=== PATIENT | male | born 1990 | race Asian ===

== ENCOUNTER 2023-09-03 16:03 | Emergency (ER) | payer MEDICAID ==
[~2023-09-03 16:03] MED LIST: ONDA8TAB13 PO
[2023-09-04] MEDS ORDERED: FERR325T28 PO (12:00)
[2023-09-04] MEDS ORDERED: ASCO-134 PO (12:08)
== END 2023-09-03 19:20 | disposition left against medical advice (07) ==
LOC: ER 16:04
DX: R83.8 Other abnormal findings in cerebrospinal fluid (principal); Z53.21 Procedure and treatment not carried out due to patient leaving prior to being seen by health care provider

== ENCOUNTER 2023-09-03 21:50 | Inpatient (IN) | payer MEDICAID ==
[~2023-09-03] VITALS: Ht 167.6 cm; Wt 94.5 kg
[2023-09-03 22:50] LABS: BASOPHILS # (AUTO) 0.1 X10'3 (0-0.2); BASOPHILS % (AUTO) 1.9 % (0-1); EOSINOPHILS % (AUTO) 12.3 % (0-6); LYMPHOCYTES # (AUTO) 1.3 X10'3 (1.1-4.8); LYMPHOCYTES % (AUTO) 15.9 % (21-51); MEAN CORPUSCULAR HEMOGLOBIN 19.1 PG (27.0-31.0); MEAN CORPUSCULAR HGB CONC 30.1 g/dL (33.0-36.5); MEAN CORPUSCULAR VOLUME 63.4 FL (78-98); MEAN PLATELET VOLUME 7.4 FL (7.4-10.4); MONOCYTES # (AUTO) 0.5 X10'3 (0-0.9); MONOCYTES % (AUTO) 6.2 % (2-12); NEUTROPHILS % (AUTO) 63.7 % (42-75); PLATELET COUNT 438 X10'3 (140-440); RED BLOOD COUNT 3.53 X10'6 (4.70-6.10); RED CELL DISTRIBUTION WIDTH 21.3 % (11.5-14.5); WHITE BLOOD COUNT 7.9 X10'3 (4.5-11.0)
[2023-09-03 22:55] LABS: PROTHROMBIN TIME 10.3 SECONDS (9.0-12.0)
[2023-09-03 22:59] LABS: ALBUMIN 3.1 G/DL (3.4-5.0); ALKALINE PHOSPHATASE 75 IU/L (46-116); ANION GAP 9 (8-16); BILIRUBIN,TOTAL 0.4 MG/DL (0.1-1.0); BLOOD UREA NITROGEN 9 MG/DL (7-18); BUN/CREATININE RATIO 8.3 (10.0-20.0); CALCIUM 7.6 MG/DL (8.5-10.1); CHLORIDE 106 MMOL/L (99-107); CREATININE 1.09 MG/DL (0.60-1.10); SODIUM 139 MMOL/L (135-145); eCRCL 84 ML/MIN; eGFR 78 ML/MIN
[2023-09-03 23:04] LABS: HEMATOCRIT 22.4 % (42.0-52.0); HEMOGLOBIN 6.7 g/dl (14.0-17.9)
[2023-09-03 23:43] LABS: ALANINE AMINOTRANSFERASE 18 U/L (12-78); ALBUMIN/GLOBULIN RATIO 0.7 (1.1-1.5); ASPARTATE AMINO TRANSFERASE 19 U/L (10-37); GLUCOSE 101 MG/DL (70-104); TOTAL PROTEIN 7.6 G/DL (6.4-8.2)
[2023-09-04] VITALS (13 sets, daily range): BP systolic 101–127; BP diastolic 53–76; PULSE 73–99; RESP 12–18; TEMP 97.8–99.7; O2SAT 98–100
[2023-09-04 00:11] LABS: NUCLEATED RED BLOOD CELLS 1 /100WBC (0-0); TOTAL CELLS COUNTED 100
[2023-09-04 00:12] LABS: ANISOCYTOSIS 3+; LARGE PLATELETS FEW; PLATELET ESTIMATE NORMAL
[2023-09-04 00:13] LABS: HYPOCHROMASIA 1+; MICROCYTOSIS 2+; POLYCHROMASIA FEW; SMUDGE CELLS 1+; TARGET CELLS FEW; TEAR DROP CELLS FEW
[2023-09-04] MEDS ORDERED: magnesium 2GM in 50ml NS 50 ML IV PRN (00:20)
[2023-09-04] MEDS ORDERED: ondansetron/PF 4mg/2ml inj IV PRN (00:20)
[2023-09-04] MEDS ORDERED: magnesium Cl slow-release 64mg tablet PO PRN (00:20)
[2023-09-04] MEDS ORDERED: potassium Cl 40MEQ/1/2NS 520ml 520 ML IV PRN (00:20)
[2023-09-04] MEDS ORDERED: potassium Cl 20 mEq SR tablet PO PRN ×2 (00:20)
[2023-09-04] MEDS ORDERED: magnesium 4gm in 100ml NS 100 ML IV PRN (00:20)
[2023-09-04] MEDS ORDERED: acetaminophen 325mg tablet PO PRN (00:20)
[2023-09-04] MEDS ORDERED: mag hydrox/Alum hydrox/simeth 30ml oral suspension PO PRN (00:20)
[2023-09-04] MEDS ORDERED: magnesium hydroxide 30ml (MOM) UD suspension PO PRN (00:20)
[2023-09-04] MEDS: normal saline 1000ml 1,000 ML IV SCH (03:30)
[2023-09-04 04:33] LABS: BASOPHILS # (AUTO) 0.1 X10'3 (0-0.2); BASOPHILS % (AUTO) 1.6 % (0-1); EOSINOPHILS % (AUTO) 11.2 % (0-6); LYMPHOCYTES # (AUTO) 1.5 X10'3 (1.1-4.8); LYMPHOCYTES % (AUTO) 16.8 % (21-51); MEAN CORPUSCULAR HEMOGLOBIN 19.1 PG (27.0-31.0); MEAN CORPUSCULAR HGB CONC 29.3 g/dL (33.0-36.5); MEAN CORPUSCULAR VOLUME 65.1 FL (78-98); MEAN PLATELET VOLUME 8.2 FL (7.4-10.4); MONOCYTES # (AUTO) 0.6 X10'3 (0-0.9); MONOCYTES % (AUTO) 6.5 % (2-12); NEUTROPHILS # (AUTO) 5.6 X10'3 (1.8-7.7); NEUTROPHILS % (AUTO) 63.9 % (42-75); PLATELET COUNT 373 X10'3 (140-440); RED CELL DISTRIBUTION WIDTH 24.6 % (11.5-14.5); WHITE BLOOD COUNT 8.8 X10'3 (4.5-11.0)
[2023-09-04 04:44] LABS: HEMATOCRIT 23.4 % (42.0-52.0); HEMOGLOBIN 6.9 g/dl (14.0-17.9)
[2023-09-04 05:28] LABS: MAGNESIUM 2.1 MG/DL (1.5-2.4); POTASSIUM 3.7 MMOL/L (3.5-5.1)
[2023-09-04] MEDS: K and/or MAG REPLACEMENT MC SCH (08:00)
[2023-09-04] MEDS: docusate sod 100mg capsule PO SCH (08:00)
[2023-09-04] MEDS: pantoprazole 40 MG vial IV SCH (08:36)
[2023-09-04 08:57] LABS: BILIRUBIN,URINE NEGATIVE (Neg); CLARITY,URINE CLEAR (Clear); COLOR,URINE YELLOW (Yellow); GLUCOSE, URINE NEGATIVE (Neg); KETONES,URINE TRACE mg/dl (Neg); LEUKOCYTE ESTERASE ,URINE NEGATIVE (Neg); NITRITES, URINE NEGATIVE (Neg); OCCULT BLOOD,URINE NEGATIVE (Neg); PROTEIN,URINE NEGATIVE (Neg); UROBILINOGEN,URINE 0.2 E.U/dL (0.2-1.0)
[2023-09-04 09:06] LABS: UA COLLECTION TYPE NON-SPECIFIED
[2023-09-04 10:41] LABS: HEMATOCRIT 26.4 % (42.0-52.0); HEMOGLOBIN 7.8 g/dl (14.0-17.9); MEAN CORPUSCULAR HGB CONC 29.5 g/dL (33.0-36.5); MEAN CORPUSCULAR VOLUME 67.9 FL (78-98); MEAN PLATELET VOLUME 7.1 FL (7.4-10.4); PLATELET COUNT 352 X10'3 (140-440); RED BLOOD COUNT 3.89 X10'6 (4.70-6.10); RED CELL DISTRIBUTION WIDTH 26.5 % (11.5-14.5); WHITE BLOOD COUNT 8.8 X10'3 (4.5-11.0)
[2023-09-04] MEDS ORDERED: FERR325T28 PO (12:00)
[2023-09-04] MEDS ORDERED: ASCO-134 PO (12:08)
== END 2023-09-04 15:36 | disposition home or self-care (01) | DRG 663 ==
LOC: ER 21:51 → ED HOLD 09-04 00:21 → SUR 3N 09-04 02:45
PROVIDERS: ADMIT Student in an Organized Health Care Education/Training Program; ATTEND Family Medicine
PROC: 30233N1 Transfusion of Nonautologous Red Blood Cells into Peripheral Vein, Percutaneous Approach (ICD-10-PCS; principal; 2023-09-04)
DX: D50.9 Iron deficiency anemia, unspecified (principal); E83.51 Hypocalcemia; K51.90 Ulcerative colitis, unspecified, without complications; E88.09 Other disorders of plasma-protein metabolism, not elsewhere classified; Z79.899 Other long term (current) drug therapy; Z91.013 Allergy to seafood
CPT/HCPCS: 36415; 36430; 80053; 81003; 82728; 83540; 83735; 84132; 84145; 84466; 85007; 85025; 85027; 85610; 86885; 86900; 86901; 86920; 87045; 87046; 87081; 89055; 93005; 99285; C9113; G0378; J7030; J7040; J7050; P9016

== ENCOUNTER 2024-03-29 19:40 | Emergency (ER) | payer MEDICAID ==
[~2024-03-29] VITALS: Ht 165.1 cm; Wt 93.2 kg
[~2024-03-29 19:40] MED LIST changes: +ASCO-134 PO; +LIDO700A32 TOP; +ONDA-245 PO; -ONDA8TAB13 PO
[2024-03-29 23:35] LABS: BILIRUBIN,URINE NEGATIVE (Neg); CLARITY,URINE CLEAR (Clear); COLOR,URINE YELLOW (Yellow); GLUCOSE, URINE NEGATIVE (Neg); KETONES,URINE NEGATIVE (Neg); LEUKOCYTE ESTERASE ,URINE NEGATIVE (Neg); NITRITES, URINE NEGATIVE (Neg); OCCULT BLOOD,URINE NEGATIVE (Neg); PH,URINE 6.5 (4.8-8.0); PROTEIN,URINE NEGATIVE (Neg); UROBILINOGEN,URINE 0.2 E.U/dL (0.2-1.0)
[2024-03-29 23:48] LABS: EOSINOPHILS # (AUTO) 0.6 X10'3 (0-0.9)
[2024-03-29 23:56] LABS: ALBUMIN 3.5 G/DL (3.4-5.0); ANION GAP 8 (8-16); BLOOD UREA NITROGEN 13 MG/DL (7-18); BUN/CREATININE RATIO 12.9 (10.0-20.0); CALCIUM 8.9 MG/DL (8.5-10.1); CHLORIDE 99 MMOL/L (99-107); CREATININE 1.01 MG/DL (0.60-1.10); GLUCOSE 95 MG/DL (70-104); SODIUM 134 MMOL/L (135-145); eCRCL 90 ML/MIN; eGFR 85 ML/MIN
[2024-03-30] LABS: UA COLLECTION TYPE CLN CATCH MIDSTREAM
[2024-03-30 00:01] LABS: BASOPHILS # (AUTO) 0.1 X10'3 (0-0.2); BASOPHILS % (AUTO) 1.1 % (0-1); EOSINOPHILS % (AUTO) 4.9 % (0-6); LYMPHOCYTES # (AUTO) 1.4 X10'3 (1.1-4.8); MEAN PLATELET VOLUME 8.2 FL (7.4-10.4); MONOCYTES # (AUTO) 0.6 X10'3 (0-0.9); NEUTROPHILS # (AUTO) 8.8 X10'3 (1.8-7.7); PLATELET COUNT 527 X10'3 (140-440); WHITE BLOOD COUNT 11.5 X10'3 (4.5-11.0)
[2024-03-30] MEDS: HYDROcodone/acetaminophen 5mg/325mg tablet PO ONE (00:03)
[2024-03-30] MEDS: ondansetron 4mg rapidly disintigrating tab PO ONE (00:03)
[2024-03-30] MEDS: ibuprofen tablet 400 MG TABLET PO ONE (00:04)
[2024-03-30] MEDS ORDERED: APIX5TAB3 PO (00:46)
[2024-03-30 00:59] LABS: HEMATOCRIT 22.5 % (42.0-52.0)
[2024-03-30 01:00] LABS: MEAN CORPUSCULAR HEMOGLOBIN 17.2 PG (27.0-31.0); MEAN CORPUSCULAR HGB CONC 31.3 g/dL (33.0-36.5); MEAN CORPUSCULAR VOLUME 54.9 FL (78-98); RED CELL DISTRIBUTION WIDTH 20.3 % (11.5-14.5)
[2024-03-30] MEDS: apixaban 5mg tablet PO ONE (01:19)
[2024-03-30 03:05] VITALS: BP 119/72; PULSE 82; RESP 14; TEMP 98.3; O2SAT 99
[2024-03-30 04:24] LABS: PLATELET ESTIMATE INCREASED
[2024-03-30 04:25] LABS: ANISOCYTOSIS 3+; ELLIPTOCYTES FEW; HYPOCHROMASIA 1+; MICROCYTOSIS 3+; POLYCHROMASIA FEW; ROULEAUX 1+
== END 2024-03-30 03:05 | disposition home or self-care (01) ==
LOC: ER 19:41
DX: I82.4Z1 Acute embolism and thrombosis of unspecified deep veins of right distal lower extremity (principal); G89.29 Other chronic pain; Z91.013 Allergy to seafood; Z79.899 Other long term (current) drug therapy; Z87.442 Personal history of urinary calculi
CPT/HCPCS: 36415; 71045; 80048; 81003; 83605; 84145; 85008; 85025; 87040; 93971; 99284

== ENCOUNTER 2024-04-01 22:13 | Emergency (ER) | payer MEDICAID ==
[~2024-04-01] VITALS: Ht 165.1 cm; Wt 93.2 kg
[~2024-04-01 22:13] MED LIST changes: +APIX5TAB3 PO
[2024-04-01 22:50] LABS: BASOPHILS # (AUTO) 0.1 X10'3 (0-0.2); BASOPHILS % (AUTO) 1.5 % (0-1); EOSINOPHILS # (AUTO) 0.3 X10'3 (0-0.9); LYMPHOCYTES # (AUTO) 0.9 X10'3 (1.1-4.8); LYMPHOCYTES % (AUTO) 10.1 % (21-51); MEAN CORPUSCULAR HEMOGLOBIN 16.6 PG (27.0-31.0); MEAN CORPUSCULAR HGB CONC 29.2 g/dL (33.0-36.5); MONOCYTES # (AUTO) 0.5 X10'3 (0-0.9); MONOCYTES % (AUTO) 5.5 % (2-12); NEUTROPHILS # (AUTO) 7.3 X10'3 (1.8-7.7); NEUTROPHILS % (AUTO) 79.9 % (42-75); PLATELET COUNT 524 X10'3 (140-440); RED BLOOD COUNT 4.21 X10'6 (4.70-6.10); RED CELL DISTRIBUTION WIDTH 20.6 % (11.5-14.5); WHITE BLOOD COUNT 9.1 X10'3 (4.5-11.0)
[2024-04-01 22:59] LABS: APTT 27 SECONDS (22-32); INR 1.1 INR; PROTHROMBIN TIME 11.8 SECONDS (9.0-12.0)
[2024-04-01 23:01] LABS: ALANINE AMINOTRANSFERASE 15 U/L (12-78); ALBUMIN 3.1 G/DL (3.4-5.0); ALBUMIN/GLOBULIN RATIO 0.7 (1.1-1.5); ALKALINE PHOSPHATASE 62 IU/L (46-116); ANION GAP 9 (8-16); ASPARTATE AMINO TRANSFERASE 13 U/L (10-37); BILIRUBIN,TOTAL 0.5 MG/DL (0.1-1.0); BLOOD UREA NITROGEN 10 MG/DL (7-18); BUN/CREATININE RATIO 11.8 (10.0-20.0); CALCIUM 8.7 MG/DL (8.5-10.1); CHLORIDE 99 MMOL/L (99-107); CREATININE 0.85 MG/DL (0.60-1.10); GLUCOSE 101 MG/DL (70-104); POTASSIUM 4.1 MMOL/L (3.5-5.1); SODIUM 133 MMOL/L (135-145); TOTAL CARBON DIOXIDE 25.1 MMOL/L (24-32); TOTAL PROTEIN 7.8 G/DL (6.4-8.2); eCRCL 107 ML/MIN; eGFR > 90 ML/MIN
[2024-04-01] MEDS ORDERED: ondansetron 4mg rapidly disintigrating tab PO ONE (23:35)
[2024-04-01] MEDS ORDERED: HYDROcodone/acetaminophen 5mg/325mg tablet PO ONE (23:35)
[2024-04-01] MEDS ORDERED: HYDR-3965 PO (23:36)
[2024-04-02 00:05] VITALS: BP 120/80; PULSE 96; RESP 16; TEMP 97.9; O2SAT 98
[2024-04-02] MEDS: HYDROcodone/acetaminophen 5mg/325mg tablet PO ONE (00:14)
[2024-04-02] MEDS: ondansetron 4mg rapidly disintigrating tab PO ONE (00:21)
[2024-04-02] MEDS: acetaminophen 325mg tablet PO ONE (00:21)
[2024-04-02 01:59] LABS: ANISOCYTOSIS 3+; MICROCYTOSIS 3+; PLATELET ESTIMATE INCREASED
[2024-04-02 02:01] LABS: ELLIPTOCYTES FEW; HYPOCHROMASIA 1+; LARGE PLATELETS FEW
== END 2024-04-02 00:21 | disposition home or self-care (01) ==
LOC: ER 22:15
DX: R53.81 Other malaise (principal); I82.403 Acute embolism and thrombosis of unspecified deep veins of lower extremity, bilateral; D64.9 Anemia, unspecified; K51.911 Ulcerative colitis, unspecified with rectal bleeding; Z83.79 Family history of other diseases of the digestive system; Z88.5 Allergy status to narcotic agent; Z83.3 Family history of diabetes mellitus; Z79.01 Long term (current) use of anticoagulants; Z82.49 Family history of ischemic heart disease and other diseases of the circulatory system; Z86.718 Personal history of other venous thrombosis and embolism; Z87.440 Personal history of urinary (tract) infections
CPT/HCPCS: 36415; 80053; 84484; 85008; 85025; 85610; 85730; 86885; 86900; 86901; 93005; 99284

== ENCOUNTER 2024-04-16 11:43 | Emergency (ER) | payer MEDICAID ==
[~2024-04-16] VITALS: Ht 165.1 cm; Wt 90.0 kg
[~2024-04-16 11:43] MED LIST changes: +HYDR-3965 PO
[2024-04-16 11:53] VITALS: BP 139/95; PULSE 111; RESP 20; O2SAT 100
[2024-04-16 13:18] LABS: APTT 28 SECONDS (22-32); INR 1.1 INR; PROTHROMBIN TIME 11.8 SECONDS (9.0-12.0)
[2024-04-16 13:22] LABS: ALANINE AMINOTRANSFERASE 30 U/L (12-78); ALBUMIN/GLOBULIN RATIO 0.5 (1.1-1.5); ALKALINE PHOSPHATASE 60 IU/L (46-116); ANION GAP 8 (8-16); ASPARTATE AMINO TRANSFERASE 19 U/L (10-37); BILIRUBIN,TOTAL 0.4 MG/DL (0.1-1.0); BLOOD UREA NITROGEN 7 MG/DL (7-18); BUN/CREATININE RATIO 7.8 (10.0-20.0); CALCIUM 8.8 MG/DL (8.5-10.1); CHLORIDE 98 MMOL/L (99-107); GLUCOSE 97 MG/DL (70-104); LIPASE 39 U/L (16-77); POTASSIUM 3.4 MMOL/L (3.5-5.1); SODIUM 133 MMOL/L (135-145); TOTAL CARBON DIOXIDE 26.7 MMOL/L (24-32); TOTAL PROTEIN 8.6 G/DL (6.4-8.2); eCRCL 101 ML/MIN; eGFR > 90 ML/MIN
[2024-04-16 13:31] LABS: BASOPHILS # (AUTO) 0.1 X10'3 (0-0.2); BASOPHILS % (AUTO) 1.3 % (0-1); EOSINOPHILS # (AUTO) 0.3 X10'3 (0-0.9); EOSINOPHILS % (AUTO) 2.6 % (0-6); HEMATOCRIT 22.4 % (42.0-52.0); LYMPHOCYTES # (AUTO) 1.3 X10'3 (1.1-4.8); LYMPHOCYTES % (AUTO) 12.6 % (21-51); MEAN CORPUSCULAR HEMOGLOBIN 16.6 PG (27.0-31.0); MEAN CORPUSCULAR HGB CONC 28.9 g/dL (33.0-36.5); MEAN CORPUSCULAR VOLUME 57.6 FL (78-98); MEAN PLATELET VOLUME 8.1 FL (7.4-10.4); MONOCYTES # (AUTO) 0.4 X10'3 (0-0.9); MONOCYTES % (AUTO) 4.3 % (2-12); NEUTROPHILS # (AUTO) 7.9 X10'3 (1.8-7.7); NEUTROPHILS % (AUTO) 79.2 % (42-75); PLATELET COUNT 639 X10'3 (140-440); RED BLOOD COUNT 3.88 X10'6 (4.70-6.10); WHITE BLOOD COUNT 9.9 X10'3 (4.5-11.0)
[2024-04-16 13:37] LABS: HEMOGLOBIN 6.5 g/dl (14.0-17.9)
[2024-04-16 14:54] LABS: ANISOCYTOSIS 3+; ELLIPTOCYTES 1+; HYPOCHROMASIA 2+; MICROCYTOSIS 3+; PLATELET ESTIMATE INCREASED
[2024-04-16 14:55] LABS: SCHISTOCYTES 1+; STOMATOCYTES 2+; TARGET CELLS FEW; TEAR DROP CELLS FEW
== END 2024-04-16 15:06 | disposition left against medical advice (07) ==
LOC: ER 11:44
DX: R53.1 Weakness (principal); Z53.21 Procedure and treatment not carried out due to patient leaving prior to being seen by health care provider; K51.90 Ulcerative colitis, unspecified, without complications
CPT/HCPCS: 36415; 80053; 83690; 85008; 85025; 85610; 85730

== ENCOUNTER 2024-04-16 18:08 | Inpatient (IN) | payer MEDICAID ==
[~2024-04-16] VITALS: Ht 165.1 cm; Wt 88.6 kg
[2024-04-16 19:00] LABS: BASOPHILS # (AUTO) 0.1 X10'3 (0-0.2); BASOPHILS % (AUTO) 1.4 % (0-1); EOSINOPHILS # (AUTO) 0.3 X10'3 (0-0.9); EOSINOPHILS % (AUTO) 2.7 % (0-6); LYMPHOCYTES % (AUTO) 10.3 % (21-51); MEAN PLATELET VOLUME 7.9 FL (7.4-10.4); MONOCYTES # (AUTO) 0.5 X10'3 (0-0.9); NEUTROPHILS # (AUTO) 7.8 X10'3 (1.8-7.7); NEUTROPHILS % (AUTO) 80.6 % (42-75); PLATELET COUNT 544 X10'3 (140-440); WHITE BLOOD COUNT 9.6 X10'3 (4.5-11.0)
[2024-04-16 19:14] LABS: INR 1.1 INR; PROTHROMBIN TIME 11.7 SECONDS (9.0-12.0)
[2024-04-16 19:18] LABS: ALANINE AMINOTRANSFERASE 31 U/L (12-78); ALBUMIN 2.7 G/DL (3.4-5.0); ALBUMIN/GLOBULIN RATIO 0.6 (1.1-1.5); ALKALINE PHOSPHATASE 56 IU/L (46-116); ANION GAP 7 (8-16); ASPARTATE AMINO TRANSFERASE 15 U/L (10-37); BILIRUBIN,TOTAL 0.3 MG/DL (0.1-1.0); BLOOD UREA NITROGEN 12 MG/DL (7-18); BUN/CREATININE RATIO 11.4 (10.0-20.0); CALCIUM 8.8 MG/DL (8.5-10.1); CHLORIDE 102 MMOL/L (99-107); CREATININE 1.05 MG/DL (0.60-1.10); GLUCOSE 108 MG/DL (70-104); POTASSIUM 4.6 MMOL/L (3.5-5.1); SODIUM 136 MMOL/L (135-145); TOTAL CARBON DIOXIDE 27.4 MMOL/L (24-32); TOTAL PROTEIN 7.3 G/DL (6.4-8.2); eCRCL 86 ML/MIN; eGFR 81 ML/MIN
[2024-04-16 19:29] LABS: RED BLOOD COUNT 3.34 X10'6 (4.70-6.10)
[2024-04-16 19:30] LABS: HEMATOCRIT 18.9 % (42.0-52.0); HEMOGLOBIN 5.9 g/dl (14.0-17.9); MEAN CORPUSCULAR HEMOGLOBIN 17.6 PG (27.0-31.0); MEAN CORPUSCULAR VOLUME 56.6 FL (78-98)
[2024-04-16 19:31] LABS: MEAN CORPUSCULAR HGB CONC 31.1 g/dL (33.0-36.5); RED CELL DISTRIBUTION WIDTH 21.3 % (11.5-14.5)
[2024-04-16 19:49] LABS: ANISOCYTOSIS 3+; HYPOCHROMASIA 1+; PLATELET ESTIMATE INCREASED; POLYCHROMASIA FEW
[2024-04-16 19:50] LABS: ELLIPTOCYTES 1+; MICROCYTOSIS 3+; STOMATOCYTES 1+
[2024-04-16 19:51] LABS: LARGE PLATELETS FEW
[2024-04-16 19:52] LABS: SCHISTOCYTES FEW
[2024-04-16] MEDS ORDERED: potassium Cl 20 mEq SR tablet PO PRN (20:05)
[2024-04-16] MEDS ORDERED: magnesium sulf-water 4G/100mL 100 ML IV PRN (20:05)
[2024-04-16] MEDS ORDERED: magnesium hydroxide 30ml (MOM) UD suspension PO PRN (20:05)
[2024-04-16] MEDS ORDERED: magnesium Cl slow-release 64mg tablet PO PRN (20:05)
[2024-04-16] MEDS ORDERED: magnesium sulf-water 2g/50mL 50 ML IV PRN (20:05)
[2024-04-16] MEDS ORDERED: ondansetron/PF 4mg/2ml inj IV PRN (20:05)
[2024-04-16] MEDS ORDERED: mag hydrox/Alum hydrox/simeth 30ml oral suspension PO PRN (20:05)
[2024-04-16] MEDS ORDERED: potassium Cl 40MEQ/1/2NS 520ml 520 ML IV PRN (20:05)
[2024-04-16] MEDS ORDERED: HYDROcodone/acetaminophen 5mg/325mg tablet PO PRN (21:10)
[2024-04-16 21:15] VITALS: BP 104/58; PULSE 87; RESP 20; TEMP 99.1
[2024-04-16 21:30] VITALS: BP_SYST 111; BP_SYST 119; BP_DIAS 69; BP_DIAS 75; PULSE 86; PULSE 87; RESP 20; TEMP 99; TEMP 99.1
[2024-04-16 21:45] VITALS: BP 111/75; PULSE 86; RESP 20; TEMP 99.1
[2024-04-16 22:00] VITALS: BP 133/80; PULSE 86; RESP 20; TEMP 86
[2024-04-16 22:15] VITALS: BP 121/70; PULSE 86; RESP 20; TEMP 98.4
[2024-04-16] MEDS: pantoprazole 40 MG vial IV SCH (22:31)
[2024-04-16 23:15] VITALS: BP 124/78; PULSE 85; RESP 20; TEMP 99
[2024-04-17] VITALS (9 sets, daily range): BP systolic 95–130; BP diastolic 54–89; PULSE 73–89; RESP 16–19; TEMP 97.4–98.5; O2SAT 98–99
[2024-04-17] MEDS: normal saline 1000ml 1,000 ML IV SCH (01:16)
[2024-04-17 01:24] LABS: % IRON SATURATION 9 % (11-46); IRON 20 UG/DL (53-167); TOTAL IRON BINDING CAPACITY 226 UG/DL (259-388)
[2024-04-17] MEDS: HYDROcodone/acetaminophen 10/325mg tab PO PRN (04:20)
[2024-04-17 06:54] LABS: BASOPHILS # (AUTO) 0.1 X10'3 (0-0.2); BASOPHILS % (AUTO) 1.6 % (0-1); EOSINOPHILS # (AUTO) 0.4 X10'3 (0-0.9); EOSINOPHILS % (AUTO) 3.9 % (0-6); LYMPHOCYTES # (AUTO) 1.3 X10'3 (1.1-4.8); LYMPHOCYTES % (AUTO) 14.5 % (21-51); MEAN CORPUSCULAR HEMOGLOBIN 18.7 PG (27.0-31.0); MEAN CORPUSCULAR VOLUME 62.2 FL (78-98); MEAN PLATELET VOLUME 7.9 FL (7.4-10.4); MONOCYTES # (AUTO) 0.5 X10'3 (0-0.9); MONOCYTES % (AUTO) 5.8 % (2-12); NEUTROPHILS # (AUTO) 6.7 X10'3 (1.8-7.7); NEUTROPHILS % (AUTO) 74.2 % (42-75); PLATELET COUNT 483 X10'3 (140-440); RED BLOOD COUNT 3.33 X10'6 (4.70-6.10); RED CELL DISTRIBUTION WIDTH 26.2 % (11.5-14.5)
[2024-04-17 06:57] LABS: ALBUMIN 2.6 G/DL (3.4-5.0); ANION GAP 7 (8-16); BLOOD UREA NITROGEN 8 MG/DL (7-18); BUN/CREATININE RATIO 9.6 (10.0-20.0); CALCIUM 8.5 MG/DL (8.5-10.1); CHLORIDE 103 MMOL/L (99-107); CREATININE 0.83 MG/DL (0.60-1.10); GLUCOSE 88 MG/DL (70-104); POTASSIUM 3.6 MMOL/L (3.5-5.1); SODIUM 137 MMOL/L (135-145); TOTAL CARBON DIOXIDE 27.5 MMOL/L (24-32); eCRCL 109 ML/MIN; eGFR > 90 ML/MIN
[2024-04-17 07:10] LABS: HEMOGLOBIN 6.2 g/dl (14.0-17.9)
[2024-04-17 07:11] LABS: HEMATOCRIT 20.7 % (42.0-52.0)
[2024-04-17 07:43] LABS: ANISOCYTOSIS 3+; ELLIPTOCYTES FEW; HYPOCHROMASIA 1+; MICROCYTOSIS 2+; PLATELET ESTIMATE INCREASED; POIKILOCYTOSIS FEW
[2024-04-17] MEDS: K and/or MAG REPLACEMENT MC SCH (08:00)
[2024-04-17] MEDS: docusate sod 100mg capsule PO SCH (09:10)
[2024-04-17 13:13] LABS: OCCULT BLOOD STOOL POSITIVE (Neg)
[2024-04-17] MEDS: albumin (human) 25% 100 ML IV solution IV ONE (17:08)
[2024-04-17] MEDS: acetaminophen 325mg tablet PO PRN (17:20)
[2024-04-17 17:33] LABS: BASOPHILS # (AUTO) 0.1 X10'3 (0-0.2); EOSINOPHILS # (AUTO) 0.3 X10'3 (0-0.9); EOSINOPHILS % (AUTO) 3.4 % (0-6); HEMATOCRIT 24.2 % (42.0-52.0); HEMOGLOBIN 7.3 g/dl (14.0-17.9); LYMPHOCYTES % (AUTO) 9.8 % (21-51); MEAN CORPUSCULAR HEMOGLOBIN 19.5 PG (27.0-31.0); MEAN CORPUSCULAR HGB CONC 30.3 g/dL (33.0-36.5); MEAN CORPUSCULAR VOLUME 64.3 FL (78-98); MONOCYTES # (AUTO) 0.4 X10'3 (0-0.9); MONOCYTES % (AUTO) 3.8 % (2-12); PLATELET COUNT 470 X10'3 (140-440); RED BLOOD COUNT 3.77 X10'6 (4.70-6.10); WHITE BLOOD COUNT 9.8 X10'3 (4.5-11.0)
[2024-04-17 18:09] LABS: HEMATOCRIT 23.3 % (42.0-52.0); HEMOGLOBIN 7.1 g/dl (14.0-17.9); MEAN CORPUSCULAR HEMOGLOBIN 19.6 PG (27.0-31.0); MEAN CORPUSCULAR HGB CONC 30.6 g/dL (33.0-36.5); MEAN CORPUSCULAR VOLUME 64.2 FL (78-98); MEAN PLATELET VOLUME 6.2 FL (7.4-10.4); PLATELET COUNT 461 X10'3 (140-440); RED BLOOD COUNT 3.63 X10'6 (4.70-6.10); RED CELL DISTRIBUTION WIDTH 29.6 % (11.5-14.5); WHITE BLOOD COUNT 8.9 X10'3 (4.5-11.0)
[2024-04-17] MEDS: pantoprazole 40MG/NS 100ML BAG 100 ML IV SCH (21:17)
[2024-04-18] MEDS: hydrocortisone sod succ/PF 100mg/2ml inj. IV SCH (00:03)
[2024-04-18 06:00] VITALS: BP 115/70; PULSE 62; RESP 16; TEMP 97.4; O2SAT 97
[2024-04-18 06:45] LABS: ANION GAP 12 (8-16); BLOOD UREA NITROGEN 10 MG/DL (7-18); BUN/CREATININE RATIO 12.3 (10.0-20.0); CALCIUM 8.8 MG/DL (8.5-10.1); CHLORIDE 100 MMOL/L (99-107); CREATININE 0.81 MG/DL (0.60-1.10); GLUCOSE 97 MG/DL (70-104); POTASSIUM 3.8 MMOL/L (3.5-5.1); SODIUM 136 MMOL/L (135-145); TOTAL CARBON DIOXIDE 24.3 MMOL/L (24-32); eCRCL 112 ML/MIN; eGFR > 90 ML/MIN
[2024-04-18 06:48] LABS: BASOPHILS # (AUTO) 0.1 X10'3 (0-0.2); BASOPHILS % (AUTO) 0.7 % (0-1); EOSINOPHILS # (AUTO) 0.1 X10'3 (0-0.9); EOSINOPHILS % (AUTO) 0.6 % (0-6); HEMATOCRIT 25.6 % (42.0-52.0); HEMOGLOBIN 7.9 g/dl (14.0-17.9); LYMPHOCYTES # (AUTO) 0.7 X10'3 (1.1-4.8); LYMPHOCYTES % (AUTO) 6.3 % (21-51); MEAN CORPUSCULAR HEMOGLOBIN 19.9 PG (27.0-31.0); MEAN CORPUSCULAR HGB CONC 30.9 g/dL (33.0-36.5); MEAN CORPUSCULAR VOLUME 64.4 FL (78-98); MONOCYTES # (AUTO) 0.1 X10'3 (0-0.9); MONOCYTES % (AUTO) 1.3 % (2-12); NEUTROPHILS # (AUTO) 9.5 X10'3 (1.8-7.7); NEUTROPHILS % (AUTO) 91.1 % (42-75); PLATELET COUNT 525 X10'3 (140-440); RED BLOOD COUNT 3.97 X10'6 (4.70-6.10); RED CELL DISTRIBUTION WIDTH 29.9 % (11.5-14.5); WHITE BLOOD COUNT 10.4 X10'3 (4.5-11.0)
[2024-04-18 08:21] LABS: C DIFF ANTIGEN SEE COMMENTS (NEGATIVE); C DIFF SPECIMEN=DIARRHEA? ACCEPTABLE; C DIFFICILE TOXINS A&B NEGATIVE (Neg)
[2024-04-18 09:00] VITALS: RESP 18; O2SAT 96
[2024-04-18 09:48] VITALS: RESP 16
[2024-04-18 10:35] VITALS: BP 97/44; PULSE 80; RESP 16; TEMP 98.4; O2SAT 98
[2024-04-18] MEDS ORDERED: NORMAL SALINE IV SCH (12:05)
[2024-04-18] MEDS ORDERED: IRON SUCROSE COMPLEX IV SCH (12:05)
[2024-04-18] MEDS: PEG 3350/Na sulf,bicarb,Cl/KCl oral sol 4 liter bottle PO ONE (14:06)
[2024-04-18] MEDS: IRON SUCROSE COMPLEX IV SCH (14:46)
[2024-04-18] MEDS: NS IV SCH (14:46)
[2024-04-18 18:00] VITALS: BP 116/69; PULSE 72; RESP 16; TEMP 98.4; O2SAT 98
[2024-04-18 22:00] VITALS: BP 126/65; PULSE 85; RESP 16; TEMP 98.2; O2SAT 99
[2024-04-19] VITALS (8 sets, daily range): BP systolic 94–106; BP diastolic 47–67; PULSE 56–73; RESP 14–18; TEMP 97.7–97.8; O2SAT 98–99
[2024-04-19 07:38] LABS: ALBUMIN 2.5 G/DL (3.4-5.0); ANION GAP 9 (8-16); BLOOD UREA NITROGEN 5 MG/DL (7-18); BUN/CREATININE RATIO 6.4 (10.0-20.0); CALCIUM 8.2 MG/DL (8.5-10.1); CHLORIDE 109 MMOL/L (99-107); CREATININE 0.78 MG/DL (0.60-1.10); GLUCOSE 122 MG/DL (70-104); POTASSIUM 3.4 MMOL/L (3.5-5.1); SODIUM 143 MMOL/L (135-145); TOTAL CARBON DIOXIDE 25.3 MMOL/L (24-32); eCRCL 116 ML/MIN; eGFR > 90 ML/MIN
[2024-04-19 07:41] LABS: BASOPHILS % (AUTO) 0.6 % (0-1); EOSINOPHILS % (AUTO) 0 % (0-6); HEMOGLOBIN 7.1 g/dl (14.0-17.9); LYMPHOCYTES # (AUTO) 0.7 X10'3 (1.1-4.8); LYMPHOCYTES % (AUTO) 12.3 % (21-51); MONOCYTES # (AUTO) 0.2 X10'3 (0-0.9); MONOCYTES % (AUTO) 3.4 % (2-12); NEUTROPHILS # (AUTO) 4.9 X10'3 (1.8-7.7); NEUTROPHILS % (AUTO) 83.7 % (42-75); PLATELET COUNT 449 X10'3 (140-440); RED BLOOD COUNT 3.74 X10'6 (4.70-6.10); WHITE BLOOD COUNT 5.8 X10'3 (4.5-11.0)
[2024-04-19 08:12] LABS: HEMATOCRIT 22.9 % (42.0-52.0); MEAN CORPUSCULAR HEMOGLOBIN 20.4 PG (27.0-31.0); MEAN CORPUSCULAR VOLUME 63.7 FL (78-98)
[2024-04-19] MEDS ORDERED: MIDAZolam 1 MG/ML 5ML VIAL ONE (10:41)
[2024-04-19] MEDS ORDERED: fentaNYL/PF 50MCG/1 ML 2ML syringe ONE (10:41)
[2024-04-19 11:58] LABS: C-REACTIVE PROTEIN 3.06 MG/DL (0.0-0.5)
[2024-04-19] MEDS: potassium Cl 20 mEq SR tablet PO PRN (16:52)
[2024-04-19] MEDS: pantoprazole 40mg Tablet.DR PO SCH (19:34)
[2024-04-20] MEDS: methylPREDNISolone sod succ 125mg/2ml vial IV SCH (00:28)
[2024-04-20 06:00] VITALS: BP 95/52; PULSE 61; RESP 18; TEMP 97.3; O2SAT 99
[2024-04-20 08:29] VITALS: RESP 18
[2024-04-20 09:35] LABS: ALBUMIN 2.6 G/DL (3.4-5.0); BLOOD UREA NITROGEN 4 MG/DL (7-18); BUN/CREATININE RATIO 5.5 (10.0-20.0); CALCIUM 8.1 MG/DL (8.5-10.1); CREATININE 0.73 MG/DL (0.60-1.10); FERRITIN 234 NG/ML (26-388); GLUCOSE 103 MG/DL (70-104); TOTAL CARBON DIOXIDE 26.9 MMOL/L (24-32); eCRCL 124 ML/MIN; eGFR > 90 ML/MIN
[2024-04-20 10:00] VITALS: BP 105/61; PULSE 66; RESP 16; TEMP 97.6; O2SAT 99
[2024-04-20 10:15] LABS: ANION GAP 7 (8-16); CHLORIDE 109 MMOL/L (99-107); POTASSIUM 3.6 MMOL/L (3.5-5.1); SODIUM 143 MMOL/L (135-145)
[2024-04-20] MEDS: acetaminophen 325mg tablet PO PRN (12:44)
[2024-04-20 18:00] VITALS: BP 111/77; PULSE 63; RESP 18; TEMP 97.6; O2SAT 99
[2024-04-20 20:00] VITALS: RESP 18; O2SAT 99
[2024-04-20] MEDS: mesalamine 400 mg capsule.DR PO SCH (20:00)
[2024-04-20 22:00] VITALS: BP 114/61; PULSE 63; RESP 16; TEMP 97.6; O2SAT 99
[2024-04-21 06:00] VITALS: BP 107/54; PULSE 54; RESP 16; TEMP 98.8; O2SAT 99
[2024-04-21 07:14] LABS: ABSOLUTE RETICS # 212100 /CUMM (23000-93000); BASOPHILS % (AUTO) 0.5 % (0-1); EOSINOPHILS % (AUTO) 0 % (0-6); LYMPHOCYTES # (AUTO) 1.1 X10'3 (1.1-4.8); LYMPHOCYTES % (AUTO) 13.2 % (21-51); MONOCYTES # (AUTO) 0.4 X10'3 (0-0.9); MONOCYTES % (AUTO) 4.3 % (2-12); NEUTROPHILS # (AUTO) 7.1 X10'3 (1.8-7.7); PLATELET COUNT 381 X10'3 (140-440); RED BLOOD COUNT 3.63 X10'6 (4.70-6.10); RED CELL DISTRIBUTION WIDTH 30.7 % (11.5-14.5); RETICULOCYTE % (AUTO) 5.8 % (0.5-1.5); WHITE BLOOD COUNT 8.6 X10'3 (4.5-11.0)
[2024-04-21 07:30] LABS: ALBUMIN 2.6 G/DL (3.4-5.0); ANION GAP 11 (8-16); BLOOD UREA NITROGEN 6 MG/DL (7-18); BUN/CREATININE RATIO 7.5 (10.0-20.0); CALCIUM 8.4 MG/DL (8.5-10.1); CHLORIDE 109 MMOL/L (99-107); FERRITIN 195 NG/ML (26-388); GLUCOSE 105 MG/DL (70-104); POTASSIUM 3.7 MMOL/L (3.5-5.1); SODIUM 143 MMOL/L (135-145); eCRCL 113 ML/MIN; eGFR > 90 ML/MIN
[2024-04-21 08:39] LABS: HEMATOCRIT 24.1 % (42.0-52.0); HEMOGLOBIN 7.6 g/dl (14.0-17.9); MEAN CORPUSCULAR HEMOGLOBIN 20.7 PG (27.0-31.0); MEAN CORPUSCULAR HGB CONC 31.3 g/dL (33.0-36.5)
[2024-04-21 08:43] VITALS: RESP 16; O2SAT 99
[2024-04-21 09:27] LABS: LACTATE DEHYDROGENASE 153 U/L (85-227)
[2024-04-21 09:48] LABS: ANISOCYTOSIS 3+; MICROCYTOSIS 2+; PLATELET ESTIMATE NORMAL
[2024-04-21 09:49] LABS: ELLIPTOCYTES 1+; HYPOCHROMASIA 1+; POLYCHROMASIA 1+; TARGET CELLS FEW; TEAR DROP CELLS FEW
[2024-04-21 09:57] LABS: HBSAG SCREEN Negative (Negative); HEP B CORE AB, IGM Negative (Negative); HEP B SURF AB Reactive (.); HEPATITIS C VIRUS ANTIBODY Non Reactive (Non Reactive)
[2024-04-21 10:00] VITALS: BP 105/59; PULSE 41; RESP 16; TEMP 98.3; O2SAT 99
[2024-04-21] MEDS ORDERED: mesalamine 1.2gm ER tablet PO SCH (11:51)
[2024-04-21 14:23] VITALS: RESP 16; O2SAT 99
[2024-04-21] MEDS ORDERED: MESA1.2T3 PO (14:32)
[2024-04-21] MEDS ORDERED: FERR325T28 PO (14:32)
[2024-04-21] MEDS ORDERED: PRED20TA PO (16:48)
== END 2024-04-21 15:10 | disposition home or self-care (01) | DRG 245 ==
LOC: ER 18:09 → ED HOLD 20:06 → ORTHO 4S 04-17 06:52
PROVIDERS: ADMIT Internal Medicine Sleep Medicine; ATTEND Family Medicine
PROC: 30233N1 Transfusion of Nonautologous Red Blood Cells into Peripheral Vein, Percutaneous Approach (ICD-10-PCS; 2024-04-16)
PROC: 0DBB8ZX Excision of Ileum, Via Natural or Artificial Opening Endoscopic, Diagnostic (ICD-10-PCS; principal; 2024-04-19)
PROC: 0DBK8ZX Excision of Ascending Colon, Via Natural or Artificial Opening Endoscopic, Diagnostic (ICD-10-PCS; 2024-04-19)
PROC: 0DBN8ZX Excision of Sigmoid Colon, Via Natural or Artificial Opening Endoscopic, Diagnostic (ICD-10-PCS; 2024-04-19)
PROC: 0DBP8ZX Excision of Rectum, Via Natural or Artificial Opening Endoscopic, Diagnostic (ICD-10-PCS; 2024-04-19)
DX: K51.911 Ulcerative colitis, unspecified with rectal bleeding (principal); D50.0 Iron deficiency anemia secondary to blood loss (chronic); E66.811 Obesity, class 1; G89.4 Chronic pain syndrome; F17.200 Nicotine dependence, unspecified, uncomplicated; I10 Essential (primary) hypertension; K21.9 Gastro-esophageal reflux disease without esophagitis; Z79.01 Long term (current) use of anticoagulants; Z82.49 Family history of ischemic heart disease and other diseases of the circulatory system; Z83.3 Family history of diabetes mellitus; Z86.718 Personal history of other venous thrombosis and embolism; Z68.32 Body mass index [BMI] 32.0-32.9, adult; Z91.013 Allergy to seafood
CPT/HCPCS: 36415; 36430; 45380; 71250; 74176; 80048; 80053; 82272; 82728; 83540; 83550; 83615; 85008; 85025; 85027; 85045; 85610; 85651; 86038; 86140; 86705; 86706; 86803; 86885; 86900; 86901; 86920; 87040; 87045; 87046; 87081; 87324; 87340; 87449; 87493; 87522; 89055; 93971; 97110; 97161; 97530; 97542; 99152; 99291; A4620; G0378; J1720; J1756; J2250; J2470; J2919; J3010; J7030; J7040; J7050; P9016; P9047